=== PATIENT | female | born 1990 | race Caucasian/White ===

== ENCOUNTER 2017-04-05 16:25 | Emergency (ER) | payer OTHER ==
[~2017-04-05] VITALS: Ht 170.2 cm; Wt 86.4 kg
[~2017-04-05 16:25] MED LIST: ALBUTEROL17 GM INH; AMOXICILLIN PO; AMOXICILLIN500 M1 PO; ATARAX PO; ATIVAN2 M1 PO; BENZONATATE PO; BIRTH CONTROL PILL PO; BUSPAR PO; DEXAMETHASONE4 MG PO; FLEXERIL10 MG PO; IBUPROFEN800 MG PO; KEFLEX500 M2 PO; MOTRIN600 MG PO; NO MEDICATIONS; ORTHO TRI-7 DAYSX 3 PO; PEPCID PO; PHENERGAN DM1 ML PO; PROMETHAZINE D118 ML PO; PYRIDIUM PO; SUDAFED PO; TYLENOL/CO12 MG/5 ML PO; VISTARIL PO; ZOFRANODT PO; [UNRECOGNIZED DRUG - OTHER]
[2017-04-05] MEDS ORDERED: ZITHROMAX1 GM (16:43)
== END 2017-04-05 17:50 | disposition home or self-care (01) ==
LOC: SED 16:25
DX: J02.0 Streptococcal pharyngitis (principal); F41.9 Anxiety disorder, unspecified; F17.210 Nicotine dependence, cigarettes, uncomplicated
CPT/HCPCS: 99282